=== PATIENT | male | born 1995 | race Caucasian/White ===

== ENCOUNTER 2022-11-03 16:26 | Emergency (ER) | payer OTHER, SELFPAY ==
[2022-11-03 16:46] VITALS: BP 136/71; PULSE 58; RESP 16; TEMP 37.2; O2SAT 100; BMI 26.6
--- NOTE | 2022-11-03 17:02 | DI.US.S_ITS ---
PROCEDURE: US SCROTUM INDICATIONS: LEFT SCROTAL PAIN POST VASECTOMY 10-07-22 TECHNIQUE: Real-time scanning was performed of the scrotum and testicles, with image documentation. Color and pulse Doppler interrogation was performed of both testicles. COMPARISON: None. FINDINGS: Right: Testicle is normal in size at 4.6 x 2.5 x 2.6 cm, and homogenous in echotexture. Epididymis is normal in overall size and morphology. No hydrocele or varicoceles. Overlying scrotal skin is normal in thickness. Left: Testicle is normal in size at 3.4 x 2.7 x 2.9 cm, and homogeneous in echotexture. Epididymis is normal in overall size and morphology. There is a small left-sided hydrocele. There is a mild left-sided varicocele seen along the superior lateral aspect of the scrotum at the area of clinical concern. Overlying scrotal skin is normal in thickness. Doppler: Color and pulse Doppler demonstrate normal and symmetric arterial flow in both testicles. IMPRESSION: A left-sided varicocele can be seen at concern. Small left-sided hydrocele. No abscess is seen. Dictated by: Natalio Smith M.D. on 11/03/2022 at 17:02 Approved by: Natalio Smith M.D. on 11/03/2022 at 17:03
--- NOTE | 2022-11-03 19:07 | ED_ITS ---
HPI - Recheck/Abnormal Lab/Rx General Chief Complaint: Recheck/Abnormal Lab/Rx Stated Complaint: Post Vas Issues Time Seen by Provider: 11/03/22 18:51 Source: patient Mode of arrival: Ambulatory Limitations: no limitations History of Present Illness HPI narrative: Patient is a 27-year-old male who approximately 1 month ago underwent an elective vasectomy. He states that since that time he has noticed a swelling around his left testicle that becomes larger when he is having intercourse and is becoming painful. He states that it is only painful during intercourse. It is different than the scars where the vasectomy actually took place. No problems urinating. No abdominal pain. No skin changes. No change in bowel habits. Related Data Allergies Allergy/AdvReac Type Severity Reaction Status Date / Time No Known Drug Allergies Allergy Verified 11/03/22 16:48 Review of Systems Constitutional Constitutional: Reports system reviewed and no additional complaints, except as documented Gastrointestinal Gastrointestinal: Reports system reviewed and no additional complaints, except as documented Genitourinary Genitourinary: Reports system reviewed and no additional complaints, except as documented Integumentary/Breasts Skin/Breast: Reports system reviewed and no additional complaints, except as documented Patient History Social History Smoking Status: Never smoker Smoking Status: Never smoker Substance Use Type: does not use Exam Initial Vital Signs Initial Vital Signs: Vital Signs Temperature 98.9 F 11/03/22 16:46 Pulse Rate 58 L 11/03/22 16:46 Respiratory Rate 16 11/03/22 16:46 Blood Pressure 136/71 11/03/22 16:46 Pulse Oximetry 100 11/03/22 16:46 Oxygen Delivery Method Room Air 11/03/22 16:46 GI Inspection: normal to inspection Palpation: soft and No tender Other: Circumcised, bilateral testes unremarkable. No tenderness to the testicles. Does have a soft mass consistent with a varicocele seen on the ultrasound. Skin General: no rashes or lesions noted Course Orders Ordered: ED Orders 11/03/22 17:02 US scrotum Stat Vital Signs Vital signs: Vital Signs - 8 hr 11/03/22 16:46 11/03/22 19:18 Temperature 98.9 F Pulse Rate 58 L 62 Respiratory Rate 16 Blood Pressure 136/71 140/81 Pulse Oximetry 100 100 Oxygen Delivery Method Room Air Room Air MDM - Recheck/Abnormal Lab/Rx Lab Data Labs: Urine Dip Bedside Urine Glucose Negative Bedside Urine Bilirubin - Negative Bedside Urine Ketone - Negative Urine Specific [place] 1.010 Bedside Urine Occult Blood - Negative Bedside Urine pH 7.0 Bedside Urine Protein - Negative Bedside Urine Urobilinogen - Negative Bedside Urine Nitrite - Negative Bedside Urine Leukocytes - Negative Esterase Imaging Data scrotal US: Radiologist's Impression: PROCEDURE:? US SCROTUM ? INDICATIONS:? LEFT SCROTAL PAIN POST VASECTOMY 10-07-22 ? TECHNIQUE:? Real-time scanning was performed of the scrotum and testicles, with image documentation.? Color and pulse Doppler interrogation was performed of both testicles.? ? COMPARISON:? None. ? FINDINGS:? ? Right:? Testicle is normal in size at 4.6 x 2.5 x 2.6 cm, and homogenous in echotexture.? Epididymis is normal in overall size and morphology.? No hydrocele or varicoceles.? Overlying scrotal skin is normal in thickness.? ? Left:? Testicle is normal in size at 3.4 x 2.7 x 2.9 cm, and homogeneous in echotexture.? Epididymis is normal in overall size and morphology.? There is a small left- sided hydrocele.? There is a mild left-sided varicocele seen along the superior lateral aspect of the scrotum at the area of clinical concern.? Overlying scrotal skin is normal in thickness.? ? Doppler:? Color and pulse Doppler demonstrate normal and symmetric arterial flow in both testicles.? ? IMPRESSION:? A left-sided varicocele can be seen at concern. ? Small left-sided hydrocele. ? No abscess is seen.? [facility] Narrative Medical decision making narrative: Ultrasound shows a left-sided varicocele which is consistent with the area where he is having the discomfort. There is no signs of any infection. No signs of any testicular torsion. Will have him contact the urologist who did the procedure for follow-up. We did discuss conservative measures he can try. He expressed understanding and agreement with plan. Discharge Plan Departure Patient Disposition: Home Clinical Impression: Left varicocele Instructions: DI for Varicocele Activity Restrictions/Additional Instructions: I do recommend that you contact the urologist who did the procedure to discuss the left-sided varicocele. Until then you can use ice and ibuprofen. Return to the emergency department for any new symptoms. Referrals: ProviderRobert [Primary Care Provider] - Stand Alone Forms: Patient Portal/API
--- NOTE | 2022-11-03 19:17 | PC.NURSE ---
First time seeing pt is at time of D/c
[2022-11-03 19:18] VITALS: BP 140/81; PULSE 62; O2SAT 100
== END 2022-11-03 19:18 | disposition home or self-care (01) ==
PROVIDERS: Emergency Provider Emergency Medicine
DX: I86.1 Scrotal varices (principal)
CPT/HCPCS: 76870; 81003; 99283